=== PATIENT | female | born 1935 | race Caucasian/White ===

== ENCOUNTER 2017-12-04 09:37 | Emergency (ER) | payer OTHER ==
[2017-12-04 10:47] LABS: Absolute Monocytes 0.4 K/uL (0.1-1.3); Absolute Neutrophil 6.7 K/uL (1.8-8.0); Basophils % 0.4 % (0-1.3); Eosinophils % 0.2 % (0-4.4); Hematocrit 36.5 % (36.0-45.0); Lymphocytes % 12.5 % (15.3-44.8); MCH 28.9 pg (27.0-35.0); MCV 87.4 fL (80-100); MPV 9.7 fL (7.6-11.3); Monocytes % 5.1 % (3.3-12.3); RBC Red Blood Cell Count 4.18 M/uL (3.86-4.86)
--- NOTE | 2017-12-04 10:56 | RAD REPORT ---
EXAM DESCRIPTION: RAD - Chest Single View - 12/04/2017 10:48 am CLINICAL HISTORY: Fall, chest pain. COMPARISON: 01/25/2014 FINDINGS: Portable technique limits examination quality. The lungs are grossly clear. The heart is normal in size. No displaced fractures. IMPRESSION: No acute intrathoracic process suspected.
[2017-12-04 10:57] LABS: Potassium 3.7 mEq/L (3.6-5.0)
--- NOTE | 2017-12-04 11:12 | RAD REPORT ---
EXAM DESCRIPTION: CT - Head Brain Wo Cont - 12/04/2017 11:01 am CLINICAL HISTORY: Fall, syncope, head injury. COMPARISON: 01/25/2014 TECHNIQUE: All CT scans are performed using dose optimization technique as appropriate and may inclu de automated exposure control or mA/KV adjustment according to patient size. FINDINGS: 6 mm area of increased density is seen along the medial left frontal lobe medially adjacen t to the anterior falx, probably representing a small petechial hemorrhagic shear injury.No midline s hift is present. The paranasal sinuses and mastoids are clear. The calvarium is intact. IMPRESSION: 6 mm medial left frontal lobe petechial hemorrhagic shear injury suspected. No midline shift. Findings were discussed with Dr. Graham in the emergency room 12/04/2017 at 11:05 a.m. by telephone.
[2017-12-04 11:19] LABS: Urine Blood 1+ (NEG); Urine Glucose NEGATIVE (NEG); Urine Protein NEGATIVE (NEG)
--- NOTE | 2017-12-04 12:27 | ER ---
Nurse's Notes [facility] Name: Rosie Villalba Age: 82 yrs Sex: Female : 1935 Arrival Date: 12/04/2017 Time: 09:48 Bed 15 Private MD: Diagnosis: Contusion and laceration of left cerebrum Presentation: 12/04 09:34 Presenting complaint: EMS states: pt. is an 82 yr. old female that was getting out of rb1 bed around 2:00 this morning when she fell. The told EMS that his had LOC for a few seconds. Pt. is A \\T\\ O x 4, c/o pain to the right shoulder and neck. GCS 15 and has dizziness which is normal for her. Pt. was SR, BS 121, BP 150/80, T 98.7. Has a history of HTN, hypothyroidism, bilateral carotid blockage, glaucoma, hypoglycemia, and migraines. ROM is limited in the right shoulder. Pt. took tramadol this morning. Allergic to PCN and Sulfa. Had a doppler about 3 weeks ago that showed bilateral blockage. Transition of care: patient was not received from another setting of care. Onset of symptoms was December 04, 2017 at 02:00. Risk Assessment: Do you want to hurt yourself or someone else? Patient reports no desire to harm self or others. Initial Sepsis Screen: Does the patient meet any 2 criteria? No. Patient's initial sepsis screen is negative. Does the patient have a suspected source of infection? No. Patient's initial sepsis screen is negative. Care prior to arrival: Medication(s) given: Tramadol. 09:34 Method Of Arrival: EMS: [facility] rb1 09:34 Acuity: STERLING 3 rb1 Triage Assessment: 09:35 General: Appears in no apparent distress. comfortable, Behavior is calm, cooperative. rb1 Pain: Complains of pain in right shoulder and neck Pain currently is 7 out of 10 on a pain scale. Pain began 0200 this morning. Neuro: Level of Consciousness is awake, alert, obeys commands, Oriented to person, place, time, situation, Commodity Merchant are equal bilaterally Moves all extremities. Gait is steady, Speech is normal, Facial symmetry appears normal, Pupils are PERRLA. Cardiovascular: Capillary refill < 3 seconds is brisk in bilateral fingers. Respiratory: Airway is patent Respiratory effort is even, unlabored, Respiratory pattern is regular, symmetrical. GI: No signs and/or symptoms were reported involving the gastrointestinal system. : No signs and/or symptoms were reported regarding the genitourinary system. Derm: Wound noted skin tear to right hand Bruising that is dark purple, on right shoulder, right wrist, left upper arm. Musculoskeletal: Range of motion: limited in right shoulder. 09:35 EENT: Eyes bruising/swelling to the right eye. rb1 09:35 Neuro: Reports dizziness, pt. stated, "I struggle with being dizzy since the .". rb1 Historical: - Allergies: 09:35 PENICILLINS; rb1 09:35 Sulfa (Sulfonamide Antibiotics); rb1 09:35 Aspirin; rb1 - Home Meds: :35 Tramadol 37.5 mg Oral [Active]; Synthroid 175 mcg Oral tab 1 tab once daily [Active]; rb1 losartan 25 mg oral tab 1 tab once daily [Active]; latanoprost 0.1% ophthalmic drop 1 drop once daily [Active]; - PMHx: 09:35 Hypertension; Hypothyroidism; bilateral carotid blockage; Glaucoma; hypoglycemia; rb1 Migraines; - PSHx: 09:35 Appendectomy; Cholecystectomy; Hysterectomy; rb1 - Immunization history:: Adult Immunizations up to date. - Social history:: Smoking status: Patient/guardian denies using tobacco, never smoked. - Ebola Screening: : Patient negative for fever greater than or equal to 101.5 degrees Fahrenheit, and additional compatible Ebola Virus Disease symptoms Patient denies travel to an Ebola-affected area in the 21 days before illness onset. Screenin:35 Abuse screen: Denies threats or abuse. Nutritional screening: No deficits noted. rb1 Tuberculosis screening: No symptoms or risk factors identified. Fall Risk Fall in past 12 months (25 points). No secondary diagnosis (0 pts). IV access (20 points). Ambulatory Aid- None/Bed Rest/Nurse Assist (0 pts). Gait- Normal/Bed Rest/Wheelchair (0 pts) Mental Status- Oriented to own ability (0 pts). Total Sr Fall Scale indicates High Risk Score (45 or more points). Fall prevention measures have been instituted. Side Rails Up X 2 Placed Close to Nursing Station 1:1 Attendant Assigned Frequent Obs/Assessments Occuring Family Present and informed to notify staff if the need to leave the bedside As available patient and family educated on Fall Prevention Program and Strategies. Assessment: 09:35 General: see triage assessment. rb1 10:30 Reassessment: Patient appears in no apparent distress at this time. No changes from rb1 previously documented assessment. 10:53 Reassessment: pt. went to CT. rb1 11:30 Reassessment: Patient appears in no apparent distress at this time. Patient and/or rb1 family updated on plan of care and expected duration. Pain level reassessed. Patient is alert, oriented x 3, equal unlabored respirations, skin warm/dry/pink. at bedside. 12:30 Reassessment: Patient appears in no apparent distress at this time. No changes from rb1 previously documented assessment. Family at bedside. Pt. and family updated on POC. 12:40 Reassessment: Called report to RICO Guardado at [facility]. Information from the [facility] was rb1 given. All results for tests were given. All questions asked and answered. 13:11 Reassessment: Patient appears in no apparent distress at this time. Patient and/or rb1 family updated on plan of care and expected duration. Pain level reassessed. Patient is alert, oriented x 3, equal unlabored respirations, skin warm/dry/pink. Family at bedside. Vital Signs: 09:35 BP 158 / 73; Pulse 90; Resp 17; Temp 98.1(O); Pulse Ox 100% on R/A; Weight 80.29 kg rb1 (R); Height 5 ft. 8 in. (172.72 cm) (R); Pain 7/10; 10:30 BP 145 / 64; Pulse 75; Resp 19; Pulse Ox 99% on R/A; Pain 6/10; rb1 11:30 BP 149 / 56; Pulse 75; Resp 15; Pulse Ox 98% on R/A; rb1 12:30 BP 140 / 54; Pulse 70; Resp 13; Pulse Ox 98% ; rb1 13:11 BP 142 / 73; Pulse 74; Resp 19; Pulse Ox 99% on R/A; rb1 09:35 Body Mass Index 26.91 (80.29 kg, 172.72 cm) rb1 ED Course: 09:35 Arm band placed on right wrist. rb1 09:35 Patient has correct armband on for positive identification. Placed in gown. Bed in low rb1 position. Call light in reach. Side rails up X 1. it service continuity supervisor on. Pulse ox on. NIBP on. 09:35 Warm blanket given. rb1 09:48 Patient arrived in ED. 09:48 Tim Graham MD is Attending Physician. 09:52 Irina Solis, RN is Primary Nurse. rb1 09:58 Triage completed. rb1 10:20 Inserted saline lock: 22 gauge in right antecubital area, using aseptic technique. rb1 Blood collected. 10:[address] via stretcher. kw1 10:44 EKG done, by electronics technician apprentice. reviewed by Tim Graham MD. sm3 10:48 X-ray completed. Portable x-ray completed in exam room. Patient tolerated procedure jb2 well. 10:48 XRAY Chest (1 view) In Process Unspecified. EDMS 11:01 CT completed. Patient tolerated procedure well. Patient moved to CT via stretcher. kw1 Patient moved back from CT. 11:01 CT Head Brain wo Cont In Process Unspecified. EDMS 12:[address] via stretcher. vr 12:16 CT completed. Patient tolerated procedure well. Patient moved back from CT. vr 12:16 CT C Spine In Process Unspecified. EDMS 13:15 No provider procedures requiring assistance completed. Patient transferred, IV remains rb1 in place. Administered Medications: 12:54 Drug: [place] 5 mg-325 mg 1 tabs Route: PO; rb1 13:15 Follow up: Response: No adverse reaction; Pain is decreased rb1 Outcome: 12:26 ER care complete, transfer ordered by . 13:15 Patient left the ED. rb1 13:15 Transferred by ground EMS to [facility], Transfer form completed. rb1 13:15 Condition: stable 13:15 Instructed on the need for transfer. Signatures: Dispatcher [employer] EDMS Gallito London jb2 Kelly Rodriguez RN RN ss Davis, Victoria vr Irina Solis, RICO RN rb1 Tim Graham MD MD gs Wilhelm, Kimberly kw1 Velvet Leija sm3 Corrections: (The following items were deleted from the chart) 14:08 13:40 Patient left the ED. rb1 rb1
--- NOTE | 2017-12-04 12:27 | EDPHYS ---
Physician Documentation [facility] Name: Rosie Villalba Age: 82 yrs Sex: Female : 1935 Arrival Date: 12/04/2017 Time: 09:48 Bed 15 Private MD: ED Physician Tim Graham HPI: 12/04 12:18 This 82 yrs old Female presents to ER via EMS with complaints of Fall Injury. gs 12:18 Details of fall: The patient fell from an upright position. Onset: The symptoms/episode gs began/occurred acutely, this morning. Associated injuries: The patient sustained injury to the head, contusion, hematoma. Severity of symptoms: At their worst the symptoms were moderate, in the emergency department the symptoms are unchanged. The patient has experienced similar episodes in the past, a few times. pt was walking back from br pocket maker got dizzy not unusual for her fell no loc. Historical: - Allergies: 09:35 PENICILLINS; rb1 09:35 Sulfa (Sulfonamide Antibiotics); rb1 09:35 Aspirin; rb1 - Home Meds: 09:35 Tramadol 37.5 mg Oral [Active]; Synthroid 175 mcg Oral tab 1 tab once daily [Active]; rb1 losartan 25 mg oral tab 1 tab once daily [Active]; latanoprost 0.1% ophthalmic drop 1 drop once daily [Active]; - PMHx: 09:35 Hypertension; Hypothyroidism; bilateral carotid blockage; Glaucoma; hypoglycemia; rb1 Migraines; - PSHx: 09:35 Appendectomy; Cholecystectomy; Hysterectomy; rb1 - Immunization history:: Adult Immunizations up to date. - Social history:: Smoking status: Patient/guardian denies using tobacco, never smoked. - Ebola Screening: : Patient negative for fever greater than or equal to 101.5 degrees Fahrenheit, and additional compatible Ebola Virus Disease symptoms Patient denies travel to an Ebola-affected area in the 21 days before illness onset. ROS: 12:18 All other systems are negative. gs Exam: 12:18 Eyes: Pupils equal round and reactive to light, extra-ocular motions intact. Lids and gs lashes normal. Conjunctiva and sclera are non-icteric and not injected. Cornea within normal limits. Periorbital areas with no swelling, redness, or edema. ENT: Nares patent. No nasal discharge, no septal abnormalities noted. Tympanic membranes are normal and external auditory canals are clear. Oropharynx with no redness, swelling, or masses, exudates, or evidence of obstruction, uvula midline. Mucous membranes moist. Neck: Trachea midline, no thyromegaly or masses palpated, and no cervical lymphadenopathy. Supple, full range of motion without nuchal rigidity, or vertebral point tenderness. No Meningismus. Chest/axilla: Normal chest wall appearance and motion. Nontender with no deformity. No lesions are appreciated. Cardiovascular: Regular rate and rhythm with a normal S1 and S2. No gallops, murmurs, or rubs. Normal PMI, no JVD. No pulse deficits. Respiratory: Lungs have equal breath sounds bilaterally, clear to auscultation and percussion. No rales, rhonchi or wheezes noted. No increased work of breathing, no retractions or nasal flaring. Abdomen/GI: Soft, non-tender, with normal bowel sounds. No distension or tympany. No guarding or rebound. No evidence of tenderness throughout. Back: No spinal tenderness. No costovertebral tenderness. Full range of motion. Skin: Warm, dry with normal turgor. Normal color with no rashes, no lesions, and no evidence of cellulitis. MS/ Extremity: Pulses equal, no cyanosis. Neurovascular intact. Full, normal range of motion. Neuro: Awake and alert, GCS 15, oriented to person, place, time, and situation. Cranial nerves II-XII grossly intact. Motor strength 5/5 in all extremities. Sensory grossly intact. Cerebellar exam normal. Normal gait. 12:18 Constitutional: The patient appears alert, awake. 12:18 Head/face: Noted is ecchymosis, that is moderate, of the right eye. 12:18 Eyes: Pupils: no acute changes, equal, round, and reactive to light and accomodation, Extraocular movements: intact throughout. 12:18 ECG was reviewed by the Attending Physician. Vital Signs: 09:35 BP 158 / 73; Pulse 90; Resp 17; Temp 98.1(O); Pulse Ox 100% on R/A; Weight 80.29 kg rb1 (R); Height 5 ft. 8 in. (172.72 cm) (R); Pain 7/10; 10:30 BP 145 / 64; Pulse 75; Resp 19; Pulse Ox 99% on R/A; Pain 6/10; rb1 11:30 BP 149 / 56; Pulse 75; Resp 15; Pulse Ox 98% on R/A; rb1 12:30 BP 140 / 54; Pulse 70; Resp 13; Pulse Ox 98% ; rb1 13:11 BP 142 / 73; Pulse 74; Resp 19; Pulse Ox 99% on R/A; rb1 09:35 Body Mass Index 26.91 (80.29 kg, 172.72 cm) rb1 MDM: 10:20 Patient medically screened. gs 12:18 Differential diagnosis: abrasion, closed head injury, contusion, fracture. Data gs reviewed: vital signs, nurses notes. Response to treatment: the patient's symptoms have mildly improved after treatment. 12/04 10:31 Order name: Basic Metabolic Panel; Complete Time: 11:05 gs 12/04 10:31 Order name: CBC with Diff; Complete Time: 11:05 gs 12/04 10:31 Order name: XRAY Chest (1 view); Complete Time: 11:05 12/04 10:31 Order name: CT Head Brain wo Cont; Complete Time: 11:26 gs 12/04 11:02 Order name: Urine Dipstick--Ancillary (enter results); Complete Time: 11:26 ag 12/04 12:04 Order name: CT C Spine; Complete Time: 12:47 gs 12/04 10:31 Order name: EKG; Complete Time: 10:31 gs 12/04 10:31 Order name: Cardiac monitoring; Complete Time: 10:52 12/04 10:31 Order name: EKG - Nurse/Tech; Complete Time: 10:52 12/04 10:31 Order name: IV Saline Lock; Complete Time: 10:52 12/04 10:31 Order name: Labs collected and sent; Complete Time: 10:53 12/04 10:31 Order name: O2 Per Protocol; Complete Time: 10:53 12/04 10:31 Order name: O2 Sat Monitoring; Complete Time: 10:53 12/04 10:31 Order name: Urine Dipstick-Ancillary (obtain specimen); Complete Time: 12:29 gs EC:18 Rate is 77 beats/min. Rhythm is regular. [place] interval is normal. QRS interval is normal. gs T waves are Normal. No ST changes noted. Clinical impression: NSR w/ Non-specific ST/T Changes. Interpreted by me. Administered Medications: 12:54 Drug: [place] 5 mg-325 mg 1 tabs Route: PO; rb1 13:15 Follow up: Response: No adverse reaction; Pain is decreased rb1 Disposition: 12/04/17 12:26 Transfer ordered to [facility]. Diagnosis is Contusion and laceration of left cerebrum. - Reason for transfer: Higher level of care. - Accepting physician is tbd. - Condition is Stable. - Problem is new. - Symptoms have improved. Critical care time excluding procedures: 12:18 Critical care time: Bedside Care: 10 minutes, Consultation: 10 minutes, Family gs Intervention: 10 minutes. Total time: 30 minutes Signatures: Dispatcher [employer] EDIrina Lee RN RN rb1 Tim Graham MD MD gs Corrections: (The following items were deleted from the chart) 13:40 12:26 12/04/2017 12:26 Transfer ordered to [facility]. Diagnosis is rb1 Contusion and laceration of left cerebrum. Reason for transfer: Higher level of care. Accepting physician is tbd. Condition is Stable. Problem is new. Symptoms have improved. gs
--- NOTE | 2017-12-04 12:38 | RAD REPORT ---
EXAM DESCRIPTION: CT - C Spine Wo Con - 12/04/2017 12:17 pm CLINICAL HISTORY: Fall, neck injury. COMPARISON: None. TECHNIQUE: Axial 2 mm thick images of the cervical spine were obtained with sagittal and coronal rec onstruction images generated and reviewed. All CT scans are performed using dose optimization technique as appropriate and may include automated exposure control or mA/KV adjustment according to patient size. FINDINGS: Cervical body height and alignment are normal. Mild lower cervical spondylosis. No fractur e or acute bony abnormality. No paraspinal mass or hematoma. The odontoid is normal and the lateral masses are symmetric. Right-sided facial swelling noted. IMPRESSION: No acute cervical spine fracture/dislocation. Right-sided facial swelling.
[2017-12-04] MEDS ORDERED: HYDROCODONE/APAP 5/325 MG TAB ONE (12:53)
[2017-12-04 13:45] VITALS: O2SAT 98
[2017-12-04 13:46] VITALS: BP 140/54
--- NOTE | 2017-12-05 07:23 | EKG ---
Test Date: 2017-12-04 Test Time: 10:38:43 Dairy Equipment Installer: JOHN MEASUREMENT RESULTS: Intervals: Rate: 77 CT: 166 QRSD: 98 QT: 416 QTc: 470 [place]: P: 53 CT: 166 QRS: 1 T: 17 INTERPRETIVE STATEMENTS: Normal sinus rhythm Normal ECG Compared to ECG 01/25/2014 15:17:40 No significant changes Electronically Signed On 12-05-17 07:19:57 CDT by Bo Talamantes
== END 2017-12-04 13:40 | disposition short-term general hospital (02) ==
LOC: ER 09:37
DX: S06.320A Contusion and laceration of left cerebrum without loss of consciousness, initial encounter (principal); W06.XXXA Fall from bed, initial encounter; Y93.89 Activity, other specified; Y92.003 Bedroom of unspecified non-institutional (private) residence as the place of occurrence of the external cause; I10 Essential (primary) hypertension; E03.9 Hypothyroidism, unspecified; Z88.0 Allergy status to penicillin; Z88.2 Allergy status to sulfonamides; Z88.6 Allergy status to analgesic agent
CPT/HCPCS: 36415; 70450; 71045; 72125; 80048; 81003; 85025; 93005; 99285

== ENCOUNTER 2019-08-07 19:33 | Observation (INO) | payer OTHER ==
--- OUTSIDE RECORDS SUMMARY | 2019-08-07 19:36 | XMS REPORT ---
:1935 [facility] Address [address] [place] [address] Care Team Providers Name Role Phone DEVYN WALDEN Unavailable Unavailable Problems This patient has no known problems. Allergies, Adverse Reactions, Alerts This patient has no known allergies or adverse reactions. Medications This patient has no known medications. Results Test Description Test Time Test Comments Text Results Atomic Results Result Comments POCT-GLUCOSE METER 2017-12-06 12:14:00 Test Item Value Reference Range Comments POC-GLUCOSE METER (BEAKER) (test 123 mg/dL 70-110 TESTED AT [address] dhqs=0569) [facility] [address] HEMOGLOBIN [id number] 08:41:00 Test Item Value Reference Range Comments HEMOGLOBIN A1C (BEAKER) (test bpbu=915) 5.1 % 4.3-6.1 TSH/FREE T4 IF [id number] 07:09:00 Test Item Value Reference Range Comments THYROID STIMULATING HORMONE (BEAKER) (test 0.00 uIU/mL 0.35-4.94 nkfj=760) POCT-GLUCOSE [id number] 07:07:00 Test Item Value Reference Range Comments POC-GLUCOSE METER (BEAKER) 104 mg/dL 70-110 TESTED AT [address] (test uvqs=1734) [facility] [address] T4, [id number] 07:07:00 Test Item Value Reference Range Comments FREE T4 (BEAKER) (test pqzu=554) 1.48 ng/dL 0.70-1.48 BASIC METABOLIC [id number] 05:13:00 Test Item Value Reference Range Comments SODIUM (BEAKER) (test 139 meq/L 136-145 ahiw=632) POTASSIUM (BEAKER) (test 3.9 meq/L 3.5-5.1 ytau=680) CHLORIDE (BEAKER) (test 105 meq/L 98-107 efxm=442) CO2 (BEAKER) (test 25 meq/L 22-29 yzfg=113) BLOOD UREA NITROGEN 15 mg/dL 7-21 (BEAKER) (test hwnu=929) CREATININE (BEAKER) (test 0.84 mg/dL 0.57-1.25 zbkn=839) GLUCOSE RANDOM (BEAKER) 103 mg/dL 70-105 (test juit=595) CALCIUM (BEAKER) (test 9.6 mg/dL 8.4-10.2 evzf=877) EGFR (BEAKER) (test 65 mL/min/1.73 sq m ESTIMATED GFR IS NOT njqc=1136) ACCURATE CREATININE CLEARANCE IN PREDICTING GLOMERULAR FILTRATION RATE. ESTIMATED GFR IS NOT APPLICABLE FOR DIALYSIS PATIENTS. CBC W/PLT COUNT & AUTO [id number] 04:34:00 Test Item Value Reference Range Comments WHITE BLOOD CELL COUNT (BEAKER) (test gxmj=660) 6.7 K/ L 3.5-10.5 RED BLOOD CELL COUNT (BEAKER) (test hhcm=432) 4.06 M/ L 3.93-5.22 HEMOGLOBIN (BEAKER) (test gwzi=223) 11.9 GM/DL 11.2-15.7 HEMATOCRIT (BEAKER) (test gbdr=927) 36.5 % 34.1-44.9 MEAN CORPUSCULAR VOLUME (BEAKER) (test gvbw=523) 89.9 fL 79.4-94.8 MEAN CORPUSCULAR HEMOGLOBIN (BEAKER) (test 29.3 pg 25.6-32.2 qwhg=950) MEAN CORPUSCULAR HEMOGLOBIN CONC (BEAKER) (test 32.6 GM/DL 32.2-35.5 yukf=997) RED CELL DISTRIBUTION WIDTH (BEAKER) (test 12.8 % 11.7-14.4 gdzc=803) PLATELET COUNT (BEAKER) (test hqig=035) 211 K/CU MM 150-450 MEAN PLATELET VOLUME (BEAKER) (test kqvv=565) 10.8 fL 9.4-12.3 NUCLEATED RED BLOOD CELLS (BEAKER) (test 0 /100 WBC 0-0 milv=472) NEUTROPHILS RELATIVE PERCENT (BEAKER) (test 67 % ssci=537) LYMPHOCYTES RELATIVE PERCENT (BEAKER) (test 19 % xytr=890) MONOCYTES RELATIVE PERCENT (BEAKER) (test 9 % hxkc=618) EOSINOPHILS RELATIVE PERCENT (BEAKER) (test 4 % agdd=981) BASOPHILS RELATIVE PERCENT (BEAKER) (test 0 % xkcx=707) NEUTROPHILS ABSOLUTE COUNT (BEAKER) (test 4.45 K/ L 1.56-6.13 bvfx=373) LYMPHOCYTES ABSOLUTE COUNT (BEAKER) (test 1.28 K/ L 1.18-3.74 wswt=210) MONOCYTES ABSOLUTE COUNT (BEAKER) (test 0.61 K/ L 0.24-0.36 cobq=939) EOSINOPHILS ABSOLUTE COUNT (BEAKER) (test 0.29 K/ L 0.04-0.36 squa=514) BASOPHILS ABSOLUTE COUNT (BEAKER) (test 0.03 K/ L 0.01-0.08 mtnf=682) IMMATURE GRANULOCYTES-RELATIVE PERCENT (BEAKER) 0 % 0-1 (test nubj=6867) POCT-GLUCOSE [id number] 00:40:00 Test Item Value Reference Range Comments POC-GLUCOSE METER (BEAKER) 104 mg/dL 70-110 TESTED AT [address] (test xhcm=4888) [place] [address] POCT-GLUCOSE [id number] 19:30:00 Test Item Value Reference Range Comments POC-GLUCOSE METER (BEAKER) 95 mg/dL 70-110 TESTED AT [address] (test fkwq=2298) [place] [address] POCT-GLUCOSE [id number] 13:23:00 Test Item Value Reference Range Comments POC-GLUCOSE METER (BEAKER) 106 mg/dL 70-110 TESTED AT [address] (test veqv=3042) [place] [id number] [place], CTANGIO [id number] 12:44:00FINAL REPORT CT angiogram of the upper chest, neck, and head Comparison: None Reason for exam: Intracranial hemorrhage Discussion: Multiple axial CT images of the upper chest , neck, and head were obtained using CT angiography technique. 2-D and 3-D reconstructed images were provided. 3D MIP images were generated. NASCET criteria are utilized when considering stenosis. Please note that CTA is inherently insensitive in evaluating the cavernous and skullbase portions of the internal carotid arteries because of adjacent bone and venous opacification. Dose modulation, iterative reconstruction, and/or weight based adjustment of the mA/kV was utilized to reduce the radiation dose to as low as reasonably achievable. Unenhanced head CT shows subtle hyperdensity in the inferior frontal interhemispheric fissure on the left, likely reflecting intracranial hemorrhage and question. This is unchanged from outside head CT imaging December 04. No hydrocephalus. No evidence of new hemorrhage. Normal flow upper chest aortic branches. Normal flow cervical carotid systems and cervical segment vertebral arteries with no stenosis by NASCET criteria. Normal flow intracranial internal carotid arteries and in the carotid terminus branches proximally. Normal vertebrobasilar and proximal posterior cerebral artery flow. Normal flow intracranial venous drainage pathways. No specific evidence of intracranial aneurysm or vascular malformation. Source images show right-sided lateral face and lower facial soft tissue swelling which is presumably trauma related. Impressions: Negative CTA upper chest, neck, head. Signed: Julio Cesar Stubbs Verified Date/Time: 12/05/2017 12:44:41 Reading Location: [address] Neuro Reading Room CT, CAROTID, [id number] 12:44:00FINAL REPORT CT angiogram of the upper chest, neck, and head Comparison: None Reason for exam: Intracranial hemorrhage Discussion: Multiple axial CT images of the upper chest, neck, and head were obtained using CT angiography technique. 2-D and 3-D reconstructed images were provided. 3D MIP images were generated. NASCET criteria are utilized when considering stenosis. Please note that CTA is inherently insensitive in evaluating the cavernous and skullbase portions of the internal carotid arteries because of adjacent bone and venous opacification. Dose modulation, iterative reconstruction, and/or weight based adjustment of the mA/kV was utilized to reduce the radiation dose to as low as reasonably achievable. Unenhanced head CT shows subtle hyperdensity in the inferior frontal interhemispheric fissure on the left, likely reflecting intracranial hemorrhage and question. This is unchanged from outside head CT imaging December 04. No hydrocephalus. No evidence of new hemorrhage. Normal flow upper chest aortic branches. Normal flow cervical carotid systems and cervical segment vertebral arteries with no stenosis by NASCET criteria. Normal flow intracranial internal carotid arteries and in the carotid terminus branches proximally. Normal vertebrobasilar and proximal posterior cerebral artery flow. Normal flow intracranial venous drainage pathways. No specific evidence of intracranial aneurysm or vascular malformation. Source images show right-sided lateral face and lower facial soft tissue swelling which is presumably trauma related. Impressions: Negative CTA upper chest, neck, head. Signed: Julio Cesar Stubbs Verified Date/Time: 01/2018 12:44:41 Reading Location: [address] Neuro Reading Room TROPONIN [id number] 08:33:00 Test Item Value Reference Range Comments TROPONIN I (BEAKER) (test vicf=456) 0.04 ng/mL 0.00-0.03 Troponin I (TnI) levels must be interpreted in the context of the presenting symptoms and the clinical findings. Elevated TnI levels indicate myocardial damage, but are not specific for ischemic heart disease. Elevated TnI levels are seen in patients with other cardiac conditions (including myocarditis and congestive heart failure), and slight TnI elevations occur in patients with other conditions, including sepsis, renal failure, acidosis, acute neurological disease, and persistent tachyarrhythmia.Once on admission and Daily AM afterwardsOnce on admission and Daily AM afterwardsOnce on admission and Daily AM afterwardsPOCT-GLUCOSE [id number] 06:33:00 Test Item Value Reference Range Comments POC-GLUCOSE METER (BEAKER) 108 mg/dL 70-[address] [facility] [address] [facility] (test fbxy=1909) [facility] [address] [id number] 05:19:00 Test Item Value Reference Range Comments PHOSPHORUS (BEAKER) (test lqex=783) 3.5 mg/dL 2.3-4.7 Once on admission and Daily AM afterwardsOnce on admission and Daily AM afterwardsOnce on admission and Daily AM [id number] 05:19:00 Test Item Value Reference Range Comments MAGNESIUM (BEAKER) (test qnft=984) 2.0 mg/dL 1.6-2.6 Once on admission and Daily AM afterwardsOnce on admission and Daily AM afterwardsOnce on admission and Daily AM afterwardsBASIC METABOLIC [id number] 05:19:00 Test Item Value Reference Range Comments SODIUM (BEAKER) (test 138 meq/L 136-145 hsmv=399) POTASSIUM (BEAKER) (test 4.0 meq/L 3.5-5.1 djza=516) CHLORIDE (BEAKER) (test 106 meq/L 98-107 yugt=457) CO2 (BEAKER) (test 24 meq/L 22-29 hayf=362) BLOOD UREA NITROGEN 12 mg/dL 7-21 (BEAKER) (test kkes=481) CREATININE (BEAKER) (test 0.76 mg/dL 0.57-1.25 ygxw=202) GLUCOSE RANDOM (BEAKER) 96 mg/dL 70-105 (test szve=553) CALCIUM (BEAKER) (test 9.5 mg/dL 8.4-10.2 tuwb=595) EGFR (BEAKER) (test 73 mL/min/1.73 sq m ESTIMATED GFR IS NOT aylp=2137) ACCURATE CREATININE CLEARANCE IN PREDICTING GLOMERULAR FILTRATION RATE. ESTIMATED GFR IS NOT APPLICABLE FOR DIALYSIS PATIENTS. Once on admission and Daily AM afterwardsOnce on admission and Daily AM afterwardsOnce on admission and Daily AM afterwardsCBC (HEMOGRAM ONLY) 04:53:00 Test Item Value Reference Range Comments WHITE BLOOD CELL COUNT (BEAKER) (test papx=488) 5.5 K/ L 3.5-10.5 RED BLOOD CELL COUNT (BEAKER) (test bhen=625) 3.96 M/ L 3.93-5.22 HEMOGLOBIN (BEAKER) (test sfod=731) 11.4 GM/DL 11.2-15.7 HEMATOCRIT (BEAKER) (test rrse=924) 35.4 % 34.1-44.9 MEAN CORPUSCULAR VOLUME (BEAKER) (test evme=139) 89.4 fL 79.4-94.8 MEAN CORPUSCULAR HEMOGLOBIN (BEAKER) (test 28.8 pg 25.6-32.2 hzfb=631) MEAN CORPUSCULAR HEMOGLOBIN CONC (BEAKER) (test 32.2 GM/DL 32.2-35.5 lkll=227) RED CELL DISTRIBUTION WIDTH (BEAKER) (test 12.9 % 11.7-14.4 ndup=678) PLATELET COUNT (BEAKER) (test wnmf=050) 214 K/CU MM 150-450 MEAN PLATELET VOLUME (BEAKER) (test nvux=830) 10.9 fL 9.4-12.3 NUCLEATED RED BLOOD CELLS (BEAKER) (test 0 /100 WBC 0-0 xbbn=146) POCT-GLUCOSE [id number] 00:23:00 Test Item Value Reference Range Comments POC-GLUCOSE METER (BEAKER) 108 mg/dL 70-[address] [facility] [address] [place] [address] (test fyik=7548) [facility] [address] POCT-GLUCOSE [id number] 18:20:00 Test Item Value Reference Range Comments POC-GLUCOSE METER (BEAKER) 75 mg/dL 70-110 TESTED AT [address] (test sbse=5691) [facility] [address] PROTHROMBIN TIME/[id number] 17:13:00 Test Item Value Reference Range Comments PROTIME (BEAKER) (test rycf=201) 13.9 seconds 11.7-14.7 INR (BEAKER) (test oubf=356) 1.1 <=5.9 RECOMMENDED COUMADIN/WARFARIN INR THERAPY RANGESSTANDARD DOSE: 2.0 - 3.0 Includes: PROPHYLAXIS forvenous thrombosis, systemic embolization; TREATMENT for venous thrombosis and/or pulmonary embolus.HIGH RISK: Target INR is 2.5-3.5 for patients with mechanical heart valves.[id number] 17:13:00 Test Item Value Reference Range Comments PARTIAL THROMBOPLASTIN TIME (BEAKER) (test 26.8 seconds 22.5-36.0 yalf=907) HEPATIC FUNCTION [id number] 17:10:00 Test Item Value Reference Range Comments TOTAL PROTEIN (BEAKER) (test brdj=307) 6.4 gm/dL 6.0-8.3 ALBUMIN (BEAKER) (test lvbm=1333) 3.6 g/dL 3.5-5.0 BILIRUBIN TOTAL (BEAKER) (test hvcs=841) 0.6 mg/dL 0.2-1.2 BILIRUBIN DIRECT (BEAKER) (test vnpn=505) 0.3 mg/dL 0.1-0.5 ALKALINE PHOSPHATASE (BEAKER) (test njig=570) 69 U/L 40-150 AST (SGOT) (BEAKER) (test uloj=071) 19 U/L 5-34 ALT (SGPT) (BEAKER) (test wsqe=811) 12 U/L 6-55
--- NOTE | 2019-08-07 20:19 | RAD REPORT ---
EXAM DESCRIPTION: CT - Head Brain Wo Cont - 08/07/2019 7:59 pm CLINICAL HISTORY: Syncope COMPARISON: 2018 TECHNIQUE: Computed axial tomography of the head was obtained. IV contrast was not requested. All CT scans are performed using dose optimization technique as appropriate and may include automated exposure control or mA/KV adjustment according to patient size. FINDINGS: An intracranial bleed is not seen . The ventricles are normal in caliber. No extra-axial fluid collection is noted. Fluid within the sinuses/ mastoids is not seen. IMPRESSION: No acute intracranial abnormality is seen. If patient's symptoms persist MRI of the bra in would be recommended.
[2019-08-07 20:40] LABS: Basophils % 0.4 % (0-1.3); Hematocrit 35.9 % (36.0-45.0); Lymphocytes % 16.5 % (15.3-44.8); MPV 9.3 fL (7.6-11.3); RBC Red Blood Cell Count 4.02 M/uL (3.86-4.86)
[2019-08-07 20:45] LABS: Protime INR 0.98
[2019-08-07 20:56] LABS: ALT/SGPT 18 U/L (12-78); AST/SGOT 21 U/L (15-37); Albumin 3.2 g/dL (3.4-5.0); Alkaline Phosphatase 80 U/L (45-117); BUN Blood Urea Nitrogen 19 mg/dL (7-18); Bicarbonate 27 mmol/L (21-32); Bilirubin Direct 0.1 mg/dL (0-0.2); Bilirubin Total 0.5 mg/dL (0.2-1.0); CKMB Creatine Kinase MB < 1.0 ng/mL (0.3-3.6); Creatine Phosphokinase 70 U/L (26-192); Glucose Level 102 mg/dL (74-106); Lipase 85 U/L (73-393); Magnesium 1.9 mg/dL (1.8-2.4); Potassium 4.2 mmol/L (3.5-5.1); Protein, Total 7.3 g/dL (6.4-8.2); Sodium Level 138 mmol/L (136-145); Troponin (Emerg Dept Use Only) < 0.02 ng/mL (0.0-0.045)
--- NOTE | 2019-08-07 22:04 | ER ---
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 not taking anticoagulant. 19:40 Transition of care: patient was not received from another setting of care. Onset of rr5 symptoms was August 07, 2019. Risk Assessment: Do you want to hurt yourself or someone else? Patient reports no desire to harm self or others. Initial Sepsis Screen: Does the patient meet any 2 criteria? No. Patient's initial sepsis screen is negative. Does the patient have a suspected source of infection? No. Patient's initial sepsis screen is negative. Care prior to arrival: Medication(s) given: Normal saline infusion, 500 mL, zofran 4 mg. 19:40 Method Of Arrival: EMS: Reading EMS rr5 19:40 Acuity: STERLING 3 rr5 Historical: - Allergies: 19:53 Aspirin; rr5 19:53 PENICILLINS; rr5 19:53 Sulfa (Sulfonamide Antibiotics); rr5 - Home Meds: 19:53 latanoprost 0.1% ophthalmic drop 1 drop once daily [Active]; losartan 25 mg Oral tab 1 rr5 tab once daily [Active]; Synthroid 175 mcg Oral tab 1 tab once daily [Active]; Tramadol 37.5 mg Oral [Active]; - PMHx: 19:53 bilateral carotid blockage; Glaucoma; Hypertension; HYPOGLYCEMIA; Hypothyroidism; rr5 Migraines; - PSHx: 19:53 Hysterectomy; breast lump surgery; Cholecystectomy; rr5 - Immunization history:: Adult Immunizations up to date. - Coronavirus screen:: The patient has NOT traveled to [place], [place], or [place] in the past 14 days. - Social history:: Smoking status: unknown Patient/guardian denies using alcohol, street drugs. - Ebola Screening: : Patient negative for fever greater than or equal to 101.5 degrees Fahrenheit, and additional compatible Ebola Virus Disease symptoms Patient denies exposure to infectious person Patient denies travel to an Ebola-affected area in the 21 days before illness onset. Screenin:54 Abuse screen: Denies threats or abuse. Denies injuries from another. Nutritional rr5 screening: No deficits noted. Tuberculosis screening: No symptoms or risk factors identified. Fall Risk Fall in past 12 months (25 points). IV access (20 points). Total Sr Fall Scale indicates High Risk Score (45 or more points). Fall prevention measures have been instituted. Side Rails Up X 2 Placed Close to Nursing Station Frequent Obs/Assessments Occuring Family Present and informed to notify staff if the need to leave the bedside As available patient and family educated on Fall Prevention Program and Strategies. 19:54 VAN Screening: Arm Drift: Patient shows no arm weakness. Patient is VAN negative. rr5 Assessment: 19:55 General: Appears in no apparent distress. comfortable, Behavior is calm, cooperative, rr5 appropriate for age. Pain: Denies pain. Neuro: Level of Consciousness is awake, alert, obeys commands, Oriented to person, place, time, situation, Appropriate for age Emergency Medical Technician are equal bilaterally Moves all extremities. Full function Speech is normal, Facial symmetry appears normal, Pupils are PERRLA. Cardiovascular: Capillary refill < 3 seconds Patient's skin is warm and dry. Rhythm is regular. Respiratory: Airway is patent Respiratory effort is even, unlabored, Respiratory pattern is regular, symmetrical. GI: Reports nausea. : No signs and/or symptoms were reported regarding the genitourinary system. EENT: No signs and/or symptoms were reported regarding the EENT system. Derm: Skin is intact, is healthy with good turgor, Skin temperature is warm. Musculoskeletal: Circulation, motion, and sensation intact. Capillary refill < 3 seconds. 21:00 Reassessment: Patient appears in no apparent distress at this time. No changes from rr5 previously documented assessment. Patient and/or family updated on plan of care and expected duration. Pain level reassessed. Patient is alert, oriented x 3, equal unlabored respirations, skin warm/dry/pink. no complaints made, chatting with her clother in at bedside. 21:15 Reassessment: awaiting for review, ED provider aware Patient denies pain at this time. rr5 22:20 Reassessment: Patient appears in no apparent distress at this time. Patient is alert, rr5 oriented x 3, equal unlabored respirations, skin warm/dry/pink. ED provider spoke to patient and family member agreed for the admission. hospitalist at bedside assessing the patient. 23:00 Reassessment: Patient appears in no apparent distress at this time. Patient is alert, rr5 oriented x 3, equal unlabored respirations, skin warm/dry/pink. awaiting for room assignment. 23:40 Reassessment: Patient appears in no apparent distress at this time. Patient is alert, rr5 oriented x 3, equal unlabored respirations, skin warm/dry/pink. for transfer to room 415. awake , conscious and coherent, not in distress. Patient denies pain at this time. Patient states feeling better. Vital Signs: 19:47 BP 155 / 70; Pulse 81; Resp 17; Temp 97.6; Pulse Ox 99% ; Weight 73.94 kg; Height 5 ft. rr5 8 in. (172.72 cm); Pain 0/10; 20:18 BP 138 / 52; Pulse 80; Resp 18; Pulse Ox 98% ; rr5 21:19 BP 122 / 64; Pulse 77; Resp 17; Pulse Ox 98% on R/A; ea 23:17 BP 140 / 55; Pulse 73; Resp 16; Pulse Ox 95% ; ea 23:37 BP 121 / 55; Pulse 77; Resp 17; Temp 97.8; Pulse Ox 96% ; rr5 19:47 Body Mass Index 24.78 (73.94 kg, 172.72 cm) rr5 [place] Coma Score: 19:47 Eye Response: spontaneous(4). Verbal Response: oriented(5). Motor Response: obeys rr5 commands(6). Total: 15. ED Course: 19:34 Patient arrived in ED. cf2 19:43 Lobo Shannon, [place] is Primary Nurse. rr5 19:45 Brain Bautista MD is Attending Physician. tw4 19:47 Triage completed. rr5 19:53 Arm band placed on right wrist. rr5 19:53 Patient has correct armband on for positive identification. Placed in gown. Bed in low rr5 position. Call light in reach. Side rails up X2. phototypesetting equipment monitor on. Pulse ox on. NIBP on. Warm blanket given. 19:54 Maintain EMS IV. Dressing intact. Good blood return noted. Site clean \T\ dry. Gauge \T\ rr 5 site: G22 right AC. 19:57 CT completed. Patient tolerated procedure well. Patient moved back from CT. bq 19:58 CT Head Brain wo Cont In Process Unspecified. EDMS 20:15 Initial lab(s) drawn, by me, sent to lab. rr5 21:58 Jose Odell is Hospitalizing Provider. tw4 23:18 No provider procedures requiring assistance completed. Patient admitted, IV remains in ea place. Administered Medications: No medications were administered Point of Care Testing: Blood Glucose: 19:47 Blood Glucose: 83 mg/dL; rr5 Ranges: Outcome: 22:00 Decision to Hospitalize by Provider. tw4 23:18 Instructed on the need for admit, Demonstrated understanding of instructions. ea 23:36 Admitted to Tele accompanied by tech, via stretcher, room 415, with chart, Report rr5 called to britta 23:36 Condition: stable 23:48 Patient left the ED. rr5 Signatures: Dispatcher [employer] EDMS Ashlee Tuttle Elena, RN RN Brain Tolentino MD MD tw4 Lobo Shannon RN RN rr5 Steven Brown cf2
--- NOTE | 2019-08-07 22:05 | EDPHYS ---
Physician Documentation [facility] Name: Rosie Villalba Age: 83 yrs Sex: Female : 1935 Arrival Date: 08/07/2019 Time: 19:34 Bed 2 Private MD: ED Physician Brain Bautista HPI: 08/08 06:19 This 83 yrs old Female presents to ER via EMS with complaints of Syncope. tw4 06:19 The patient has experienced syncope, collapsed, lost consciousness. Onset: The tw4 symptoms/episode began/occurred today. Duration: This was a single episode. Context: the episode(s) was witnessed, by a bystander, occurred at a store, occurred while the patient was standing. Associated injury: Head/face: contusion. Associated signs and symptoms: The patient has no apparent associated signs or symptoms. The patient has experienced similar episodes in the past, a few times. Historical: - Allergies: 08/07 19:53 Aspirin; rr5 19:53 PENICILLINS; rr5 19:53 Sulfa (Sulfonamide Antibiotics); rr5 - Home Meds: 19:53 latanoprost 0.1% ophthalmic drop 1 drop once daily [Active]; losartan 25 mg Oral tab 1 rr5 tab once daily [Active]; Synthroid 175 mcg Oral tab 1 tab once daily [Active]; Tramadol 37.5 mg Oral [Active]; - PMHx: 19:53 bilateral carotid blockage; Glaucoma; Hypertension; HYPOGLYCEMIA; Hypothyroidism; rr5 Migraines; - PSHx: 19:53 Hysterectomy; breast lump surgery; Cholecystectomy; rr5 - Immunization history:: Adult Immunizations up to date. - Coronavirus screen:: The patient has NOT traveled to [place], [place], or [place] in the past 14 days. - Social history:: Smoking status: unknown Patient/guardian denies using alcohol, street drugs. - Ebola Screening: : Patient negative for fever greater than or equal to 101.5 degrees Fahrenheit, and additional compatible Ebola Virus Disease symptoms Patient denies exposure to infectious person Patient denies travel to an Ebola-affected area in the 21 days before illness onset. ROS: 08/08 06:19 Constitutional: Negative for fever, chills, and weight loss, Eyes: Negative for injury, tw4 pain, redness, and discharge, Cardiovascular: Negative for chest pain, palpitations, and edema, Respiratory: Negative for shortness of breath, cough, wheezing, and pleuritic chest pain, Abdomen/GI: Negative for abdominal pain, nausea, vomiting, diarrhea, and constipation, Back: Negative for injury and pain, MS/Extremity: Negative for injury and deformity, Skin: Negative for injury, rash, and discoloration. Neuro: Positive for syncope, Negative for altered mental status, dizziness, gait disturbance, headache, hearing loss, numbness, seizure activity, speech changes, tingling, tremor. Exam: 06:18 Constitutional: This is a well developed, well nourished patient who is awake, alert, tw4 and in no acute distress. Head/Face: Normocephalic, atraumatic. Chest/axilla: Normal chest wall appearance and motion. Nontender with no deformity. No lesions are appreciated. Cardiovascular: Regular rate and rhythm with a normal S1 and S2. No gallops, murmurs, or rubs. Normal PMI, no JVD. No pulse deficits. Respiratory: Lungs have equal breath sounds bilaterally, clear to auscultation and percussion. No rales, rhonchi or wheezes noted. No increased work of breathing, no retractions or nasal flaring. Abdomen/GI: Soft, non-tender, with normal bowel sounds. No distension or tympany. No guarding or rebound. No evidence of tenderness throughout. Back: No spinal tenderness. No costovertebral tenderness. Full range of motion. MS/ Extremity: Pulses equal, no cyanosis. Neurovascular intact. Full, normal range of motion. Neuro: Awake and alert, GCS 15, oriented to person, place, time, and situation. Cranial nerves II-XII grossly intact. Motor strength 5/5 in all extremities. Sensory grossly intact. Cerebellar exam normal. Normal gait. Vital Signs: 08/07 19:47 BP 155 / 70; Pulse 81; Resp 17; Temp 97.6; Pulse Ox 99% ; Weight 73.94 kg; Height 5 ft. rr5 8 in. (172.72 cm); Pain 0/10; 20:18 BP 138 / 52; Pulse 80; Resp 18; Pulse Ox 98% ; rr5 21:19 BP 122 / 64; Pulse 77; Resp 17; Pulse Ox 98% on R/A; ea 23:17 BP 140 / 55; Pulse 73; Resp 16; Pulse Ox 95% ; ea 23:37 BP 121 / 55; Pulse 77; Resp 17; Temp 97.8; Pulse Ox 96% ; rr5 19:47 Body Mass Index 24.78 (73.94 kg, 172.72 cm) rr5 Comfort Coma Score: 19:47 Eye Response: spontaneous(4). Verbal Response: oriented(5). Motor Response: obeys rr5 commands(6). Total: 15. MDM: 19:45 Patient medically screened. tw08/08 06:20 Differential Diagnosis: aortic aneurysm, cardiac arrhythmia. Data reviewed: vital tw4 signs, nurses notes. Counseling: I had a detailed discussion with the patient and/or guardian regarding: the historical points, exam findings, and any diagnostic results supporting the discharge/admit diagnosis. Physician consultation: Jose Odell regarding admission, to the telemetry unit. patient's condition, and will see patient in ED. 06:21 Data reviewed: lab test result(s), cardiac enzymes, CBC, electrolytes, hepatic panel, tw4 EKG, radiologic studies, CT scan. Data interpreted: Pulse oximetry: Interpretation: normal. Test interpretation: by ED physician or midlevel provider: ECG, plain radiologic studies. 08/07 19:46 Order name: Basic Metabolic Panel; Complete Time: 21:37 4 08/07 21:39 Interpretation: Normal except: GFR 46; BUN 19. 08/07 19:46 Order name: CBC with Diff; Complete Time: 21:44 4 08/07 21:45 Interpretation: Normal except: HGB 11.9; HCT 35.9; BILLIE% 73.9. 08/07 19:46 Order name: Ckmb; Complete Time: 21:37 08/07 21:39 Interpretation: Within normal limits: CKMB < 1.0. 08/07 19:46 Order name: CPK; Complete Time: 21:37 tw4 08/07 21:39 Interpretation: Within normal limits: CPK 70. 08/07 19:46 Order name: Hepatic Function; Complete Time: 21:37 tw4 08/07 21:39 Interpretation: Normal except: ALB 3.2; GLOB 4.1; A/G 0.8. 08/07 19:46 Order name: Lipase; Complete Time: 21:37 tw4 08/07 21:39 Interpretation: Within normal limits: LIP 85. tw4 08/07 19:46 Order name: CT Head Brain wo Cont; Complete Time: 21:37 tw4 08/07 21:39 Interpretation: No acute disease. tw4 08/07 19:46 Order name: Magnesium; Complete Time: 21:37 tw4 08/07 21:43 Interpretation: Within normal limits: MG 1.9. tw4 08/07 19:46 Order name: Protime (+inr); Complete Time: 21:37 tw4 08/07 21:43 Interpretation: Within normal limits: PT 11.6. tw4 08/07 19:46 Order name: Ptt, Activated; Complete Time: 21:37 tw4 08/07 21:43 Interpretation: Within normal limits: PTT 29.5. tw4 08/07 19:46 Order name: Troponin (emerg Dept Use Only); Complete Time: 21:37 tw4 08/07 21:43 Interpretation: Within normal limits: TROPED < 0.02. tw4 08/07 19:46 Order name: EKG; Complete Time: 19:47 tw4 08/07 19:54 Order name: Glucose, Ancillary Testing; Complete Time: 21:37 EDMS 08/07 21:43 Interpretation: Within normal limits: GLUC,ANCIL 84. tw4 08/07 22:28 Order name: Urine Microscopic Only rr5 08 19:46 Order name: Cardiac monitoring; Complete Time: 19:46 tw4 08/07 19:46 Order name: EKG - Nurse/Tech; Complete Time: 19:46 tw4 08/07 19:46 Order name: IV Saline Lock; Complete Time: 19:55 tw4 08/07 19:46 Order name: Labs collected and sent; Complete Time: 19:55 tw4 08/07 19:46 Order name: NPO; Complete Time: 19:55 tw4 08/07 19:46 Order name: O2 Per Protocol; Complete Time: 19:55 tw4 08/07 19:46 Order name: O2 Sat Monitoring; Complete Time: 19:55 tw4 08/07 19:46 Order name: Urine Dipstick-Ancillary (obtain specimen); Complete Time: 22:27 tw4 EC:18 Rate is 78 beats/min. Rhythm is regular. QRS [place] is Normal. QRS interval is normal. QT tw4 interval is normal. No Q waves. T waves are Normal. No ST changes noted. Clinical impression: Normal ECG. Interpreted by me. Reviewed by me. Administered Medications: No medications were administered Point of Care Testing: Blood Glucose: 08/07 19:47 Blood Glucose: 83 mg/dL; rr5 Ranges: Critical Glucose Levels:Adult <50 mg/dl or >400 mg/dl <40 mg/dl or >180 mg/dl Disposition: 08/07/19 22:00 Hospitalization ordered by Jose Odell for Observation. Preliminary diagnosis is Syncope and collapse. - Bed requested for Telemetry/MedSurg (observation). - Status is Observation. rr5 - Condition is Stable. - Problem is new. - Symptoms have improved. Signatures: Dispatcher [employer] EDGeovanna Brannon, RN RN cg Brain Bautista MD MD tw4 Lobo Shannon RN RN rr5 Corrections: (The following items were deleted from the chart) 23:11 22:00 Hospitalization Ordered by Jose Odell for Observation. Preliminary diagnosis cg is Syncope and collapse. Bed requested for Telemetry/MedSurg (observation). Status is Observation. Condition is Stable. Problem is new. Symptoms have improved. tw4 23:48 23:11 08/07/2019 22:00 Hospitalization Ordered by Jose Odell for Observation. rr5 Preliminary diagnosis is Syncope and collapse. Bed requested for Telemetry/MedSurg (observation). Status is Observation. Condition is Stable. Problem is new. Symptoms have improved. cg
--- NOTE | 2019-08-07 22:52 | P.HP ---
Certification for Inpatient Patient admitted to: Observation With expected LOS: <2 Midnights Practitioner: I am a practitioner with admitting privileges, knowledge of patient current condition, hospital course, and medical plan of care. Services: Services provided to patient in accordance with Admission requirements found in Title 42 Section 412.3 of the Code of Federal Regulations Patient History Date of Service: 08/07/19 Reason for admission: Syncope History of Present Illness: 83-year-old woman with a history of hypertension and hypothyroidism was brought to the emergency department due to a syncopal episode. Patient is reported to have passed out in a grocery store. She denies any preceding palpitation or shortness of breath or chest pain. She also denied any lightheadedness prior to passing out. The patient reports multiple syncopal episodes over the last few years. She was told this is likely due to low blood pressure and has been told by her PCP, her systolic blood pressure need to be in the 140-150 range and therefore readjusted her antihypertensives. Her EKG in the ED shows normal sinus rhythm. Initial troponin is negative. Head CT shows no acute abnormality. She denied any symptoms during my examination in the ED. Patient is placed under observation for further workup for the syncopal episode. Allergies aspirin Allergy (Verified 08/08/19 00:16) bleeding Penicillins Allergy (Verified 08/08/19 00:16) Hives/Rash Sulfa (Sulfonamide Antibiotics) Allergy (Verified 08/08/19 00:16) plts Home Medications: Bimatoprost [Lumigan Opthalmic Drops*] 1 drop OPTH TID 01/25/14 Levothyroxine Sodium [Synthroid] 175 mcg PO DAILY 01/25/14 Losartan Potassium [Cozaar] 25 mg PO BID 01/25/14 Tramadol HCl [Ultram] 50 mg PO Q4HP PRN 01/25/14 Brimonidine Tartrate [Alphagan P] 1 drop EACH EYE TID 08/08/19 Latanoprost Ophth [Xalatan 0.005%*] 1 drop EACH EYE BEDTIME PRN 08/08/19 - Past Medical/Surgical History Diabetic: No -: anemia -: migraines -: glaucoma -: hypertenstion -: hypothyroidism -: jer carotid blockage -: appy -: [place] -: hysterectomy - Family History Family History: Reviewed- Non-Contributory - Family History Father -: Cancer Notes: Lung Cancer Brother -: Cancer Notes: stomach cancer Sister -: Heart disease Notes: emphysema - Social History Alcohol use: No CD- Drugs: No Caffeine use: Yes Review of Systems Other: Except as documented, all other systems reviewed and negative. Physical Examination - Physical Exam General: Alert, In no apparent distress, Oriented x3 HEENT: Normocephalic, Mucous membr. moist/pink, Sclerae nonicteric Neck: Supple, 2+ carotid pulse no bruit, JVD not distended Respiratory: Clear to auscultation bilaterally, Normal air movement Cardiovascular: No edema, Regular rate/rhythm, Normal S1 S2 Capillary refill: <2 Seconds Gastrointestinal: Normal bowel sounds, Soft and benign, Non-distended, No tenderness Musculoskeletal: No swelling, No erythema Integumentary: No rashes Neurological: Normal speech, Normal strength at 5/5 x4 extr, Cranial nerves 3- 12 intact - Studies Laboratory Data (last 24 hrs) 08/07/19 20:15: PT 11.6, INR 0.98, APTT 29.5 08/07/19 20:15: WBC 6.0, Hgb 11.9 L, Hct 35.9 L, Plt Count 192 08/07/19 20:15: Sodium 138, Potassium 4.2, BUN 19 H, Creatinine 1.12, Glucose 102, Magnesium 1.9, Total Bilirubin 0.5, AST 21, ALT 18, Alkaline Phosphatase 80 , Lipase 85 Assessment and Plan - Problems (Diagnosis) (1) Syncope Status: Acute (2) Hypertension Status: Chronic (3) Hypothyroidism Status: Chronic - Plan Place under observation. Trend troponin Telemetry Obtain echocardiogram Check orthostatics vitals There is a report of carotid artery disease in her medical records. MRA of the neck done in 2013 showed no carotid artery disease. Patient will need carotid Doppler as an outpatient. She may also benefit from an event monitor to rule out arrhythmia as the cause of her multiple syncopal episodes. Hold antihypertensives. - Advance Directives Does patient have a Living Will: No Does patient have a Durable POA for Healthcare: No
[2019-08-07 23:59] VITALS: O2SAT 96
[2019-08-08] MEDS ORDERED: ACETAMINOPHEN 500 MG TAB PO PRN (00:12)
[2019-08-08] MEDS ORDERED: ONDANSETRON 4 MG/2 ML VIAL IV PRN (00:12)
[2019-08-08] MEDS ORDERED: NA CHLORIDE 0.9% 1,000 ML IV SCH (00:12)
[2019-08-08 00:15] LABS: Urine Bacteria <20 /HPF (<20); Urine Culture Reflex Order NOT NEEDED; Urine RBC <5 /HPF (NONE SEEN)
[2019-08-08 01:14] VITALS: BMI 24.7
[2019-08-08 06:23] LABS: Phosphorus 3.4 mg/dL (2.5-4.9); Potassium 4.1 mmol/L (3.5-5.1)
[2019-08-08] MEDS ORDERED: ENOXAPARIN 40 MG/0.4 ML SQ SCH (09:00)
[2019-08-08] MEDS ORDERED: INFLUENZA VACCINE (for 3y+) 0.5 ML DOSE IMVAC ONE (09:00)
--- NOTE | 2019-08-08 09:46 | P.PN ---
Subjective Date of Service: 08/08/19 Chief Complaint: Syncope Subjective: No new changes, No C/O voiced, Improving, Doing well (-admitted for recurrent syncope with negative preior workup but she reports she was told her carotid are twisted -feels better now , no dizizness or headache) Review of Systems 10-point ROS is otherwise unremarkable Physical Examination - Vital Signs Temperature: 97.4 F Blood Pressure: 170/77 Pulse: 79 Respirations: 16 Pulse Ox (%): 95 - Physical Exam General: Alert, Oriented x3 HEENT: Atraumatic, Normocephalic Neck: Supple, 2+ carotid pulse no bruit Respiratory: Clear to auscultation bilaterally, Normal air movement Cardiovascular: No edema, Normal pulses, Regular rate/rhythm, Normal S1 S2 Gastrointestinal: Normal bowel sounds, Soft and benign, Non-distended Neurological: Normal speech, Normal strength at 5/5 x4 extr, Normal tone, Sensation intact (no nystagmus ) - Studies Laboratory Data (last 24 hrs) 08/07/19 20:15: PT 11.6, INR 0.98, APTT 29.5 08/07/19 20:15: WBC 6.0, Hgb 11.9 L, Hct 35.9 L, Plt Count 192 08/07/19 20:15: Sodium 138, Potassium 4.2, BUN 19 H, Creatinine 1.12, Glucose 102, Magnesium 1.9, Total Bilirubin 0.5, AST 21, ALT 18, Alkaline Phosphatase 80 , Lipase 85 Laboratory Last Values WBC 6.0 K/uL (4.3-10.9) 08/07/19 20:15 RBC 4.02 M/uL (3.86-4.86) 08/07/19 20:15 Hgb 11.9 g/dL (12.0-15.0) L 08/07/19 20:15 Hct 35.9 % (36.0-45.0) L 08/07/19 20:15 MCV 89.3 fL (80-100) 08/07/19 20:15 MCH 29.6 pg (27.0-35.0) 08/07/19 20:15 MCHC 33.2 g/dL (32.0-36.0) 08/07/19 20:15 RDW 13.5 % (12.1-15.2) 08/07/19 20:15 Plt Count 192 K/uL (152-406) 08/07/19 20:15 MPV 9.3 fL (7.6-11.3) 08/07/19 20:15 Neutrophils % 73.9 % (41.7-73.7) H 08/07/19 20:15 Lymphocytes % 16.5 % (15.3-44.8) 08/07/19 20:15 Monocytes % 7.9 % (3.3-12.3) 08/07/19 20:15 Eosinophils % 1.3 % (0-4.4) 08/07/19 20:15 Basophils % 0.4 % (0-1.3) 08/07/19 20:15 Absolute Neutrophils 4.4 K/uL (1.8-8.0) 08/07/19 20:15 Absolute Lymphocytes 1.0 K/uL (0.7-4.9) 08/07/19 20:15 Absolute Monocytes 0.5 K/uL (0.1-1.3) 08/07/19 20:15 Absolute Eosinophils 0.1 K/uL (0-0.5) 08/07/19 20:15 Absolute Basophils 0.0 K/uL (0-0.5) 08/07/19 20:15 PT 11.6 SECONDS (9.5-12.5) 08/07/19 20:15 INR 0.98 08/07/19 20:15 APTT 29.5 SECONDS (24.3-36.9) 08/07/19 20:15 Sodium 142 mmol/L (136-145) 08/08/19 05:17 Potassium 4.1 mmol/L (3.5-5.1) 08/08/19 05:17 Chloride 110 mmol/L (98-107) H 08/08/19 05:17 Carbon Dioxide 27 mmol/L (21-32) 08/08/19 05:17 BUN 18 mg/dL (7-18) 08/08/19 05:17 Creatinine 0.96 mg/dL (0.55-1.3) 08/08/19 05:17 Estimated GFR 56 mL/min (=/>90) L 08/08/19 05:17 Glucose 81 mg/dL (74-106) 08/08/19 05:17 POC Glucose 84 mg/dl (65-120) 08/07/19 19:42 Calcium 8.9 mg/dL (8.5-10.1) 08/08/19 05:17 Phosphorus 3.4 mg/dL (2.5-4.9) 08/08/19 05:17 Magnesium 2.0 mg/dL (1.8-2.4) 08/08/19 05:17 Total Bilirubin 0.5 mg/dL (0.2-1.0) 08/07/19 20:15 Direct Bilirubin 0.1 mg/dL (0-0.2) 08/07/19 20:15 AST 21 U/L (15-37) 08/07/19 20:15 ALT 18 U/L (12-78) 08/07/19 20:15 Alkaline Phosphatase 80 U/L (45-117) 08/07/19 20:15 Creatine Kinase 70 U/L (26-192) 08/07/19 20:15 CK-MB (CK-2) < 1.0 ng/mL (0.3-3.6) 08/07/19 20:15 Rapid Troponin I < 0.02 ng/mL (0.0-0.045) 08/07/19 20:15 Troponin I < 0.02 ng/mL (0.0-0.045) 08/08/19 00:40 Serum Total Protein 7.3 g/dL (6.4-8.2) 08/07/19 20:15 Albumin 3.2 g/dL (3.4-5.0) L 08/07/19 20:15 Globulin 4.1 g/dL (2.3-3.5) H 08/07/19 20:15 Albumin/Globulin Ratio 0.8 (1.1-1.8) L 08/07/19 20:15 Lipase 85 U/L (73-393) 08/07/19 20:15 Urine RBC <5 /HPF (NONE SEEN) 08/07/19 22:20 Urine WBC None seen /HPF (<5) 08/07/19 22:20 Ur Squamous Epith Cells APPLIANCE COUNSELOR 08/07/19 22:20 Urine Bacteria <20 /HPF (<20) 08/07/19 22:20 Hyaline Casts 0-5 /LPF (NONE SEEN) 08/07/19 22:20 Urine Culture Reflexed Not needed 08/07/19 22:20 Medications List Reviewed: Yes Assessment & Plan - Problems (Diagnosis) (1) Hypertension Current Visit: Yes Status: Chronic (2) Hypothyroidism Current Visit: Yes Status: Chronic (3) Syncope Current Visit: No Status: Acute Discharge Plan: Home Physician Review: Patient Assessed, Agree with Above Assessment and Plan Physician Review Additional Text: # Recurrent syncope-may be due to cardiac arrhythmia -will follow echocardiogram to rule out valvular heart disease -will also obtain carotid ultrasound while inpatient given history of twisted carotid - will consult Cardiology to be on board -c/w telemetry -will dc IVF now -start PT for ambulation #Hypertension-elevated now, start low-dose amlodipine, avoid beta wai or diuretics for now #Hypothyroid disease-follow tsh, resume Synthroid #DVT prophylaxis -subcutaneous heparin
[2019-08-08 12:11] VITALS: BP 136/63; TEMP 96.8
--- NOTE | 2019-08-08 12:51 | CON ---
This is an 83-year-old woman. Mrs. Villalba had an episode of loss of consciousness. She was shopping. She had been at 2 different grocery stores, standing, walking for about 3 hours and she stood in her line, hardly moving her legs at all for about 5 minutes, and shortly after that she felt dizzy, wanted to sit down, but could not find a place to sit and fell to the floor. She woke up immediately and then she was examined in the hospital. CT of the head is normal. She has been on telemetry. There is no arrhythmia and troponins are normal. Mrs. Villalba has orthostatic symptoms every day, every time she stands up she feels lightheaded and dizzy. She has fainted maybe 5 times that brought her to the hospital numerous other times without hospitalization. She has had numerous workups. She is told she has tortuous carotid arteries but no stenosis. She has never had any kind of vascular surgery including stents. No myocardial infarction or stroke. She does not have diabetes. She takes a blood pressure medicine. She takes losartan 25 mg b.i.d., levothyroxine, tramadol, latanoprost eye drops, and brimonidine eyedrops. She has glaucoma and hypertension and hypothyroidism. Allergies: SHE IS ALLERGIC TO ASPIRIN, PENICILLIN, AND SULFA ANTIBIOTICS. Physical Examination: General: She appears to be her stated age of 83. She is 5 feet 8 inches, 163 pounds. HEENT: Within normal limits. No carotid bruit. Lungs: Clear. Cardiac: Exam normal. Abdomen: Soft. Extremities: Normal. Her EKG does not show any significant abnormality. I think the patient should have an echo, carotid study, orthostatic vital signs and simultaneous right and left arm via blood pressures to make sure she does not have subclavian steal syndrome or severe bilateral carotid stenosis, or an undetected cardiac abnormality such as aortic stenosis. SH/MODL Voice ID: [id number] Report ID: [id number] GRISELDA
--- NOTE | 2019-08-08 15:54 | P.DS ---
Admission Date: 08/07/19 Discharge Date: 08/08/19 Disposition: AMA-LEFT AGAINST MEDICAL ADVIC Reason for Admission: Syncope - Problems (1) Hypertension Current Visit: Yes Status: Chronic (2) Hypothyroidism Current Visit: Yes Status: Chronic (3) Syncope Current Visit: No Status: Acute Hospital Course: Patient with history of recurrent syncope admitted for syncopal episode. She provided history of carotid problem in the past. She was scheduled for carotid ultrasound, echocardiogram. A cardiology consult was obtained. There was no EKG changes on telemetry monitoring. Patient while still investigated decided to leave AMA after discussion with family. Vital Signs/Physical Exam: Temp Pulse Resp BP Pulse Ox 96.8 F 68 16 136/63 95 08/08/19 12:00 08/08/19 12:00 08/08/19 12:00 08/08/19 12:00 08/08/19 12:00 Laboratory Data at Discharge: WBC 6.0 K/uL (4.3-10.9) 08/07/19 20:15 Hgb 11.9 g/dL (12.0-15.0) L 08/07/19 20:15 Hct 35.9 % (36.0-45.0) L 08/07/19 20:15 Plt Count 192 K/uL (152-406) 08/07/19 20:15 PT 11.6 SECONDS (9.5-12.5) 08/07/19 20:15 INR 0.98 08/07/19 20:15 APTT 29.5 SECONDS (24.3-36.9) 08/07/19 20:15 Sodium 142 mmol/L (136-145) 08/08/19 05:17 Potassium 4.1 mmol/L (3.5-5.1) 08/08/19 05:17 BUN 18 mg/dL (7-18) 08/08/19 05:17 Creatinine 0.96 mg/dL (0.55-1.3) 08/08/19 05:17 Glucose 81 mg/dL (74-106) 08/08/19 05:17 Phosphorus 3.4 mg/dL (2.5-4.9) 08/08/19 05:17 Magnesium 2.0 mg/dL (1.8-2.4) 08/08/19 05:17 Total Bilirubin 0.5 mg/dL (0.2-1.0) 08/07/19 20:15 AST 21 U/L (15-37) 08/07/19 20:15 ALT 18 U/L (12-78) 08/07/19 20:15 Alkaline Phosphatase 80 U/L (45-117) 08/07/19 20:15 Troponin I < 0.02 ng/mL (0.0-0.045) 08/08/19 00:40 Lipase 85 U/L (73-393) 08/07/19 20:15 Home Medications: Bimatoprost [Lumigan Opthalmic Drops*] 1 drop OPTH TID 01/25/14 Levothyroxine Sodium [Synthroid] 175 mcg PO DAILY 01/25/14 Losartan Potassium [Cozaar] 25 mg PO BID 01/25/14 Tramadol HCl [Ultram] 50 mg PO Q4HP PRN 01/25/14 Brimonidine Tartrate [Alphagan P] 1 drop EACH EYE TID 08/08/19 Latanoprost Ophth [Xalatan 0.005%*] 1 drop EACH EYE BEDTIME PRN 08/08/19
[2019-08-09] MEDS ORDERED: AMLODIPINE 2.5 MG TAB PO SCH (09:00)
--- NOTE | 2019-08-09 09:21 | EKG ---
Test Date: 2019-08-07 Test Time: 19:50:06 Full Stack Software Engineer: CUONG MEASUREMENT RESULTS: Intervals: Rate: 78 VA: 150 QRSD: 92 QT: 390 QTc: 444 [place]: P: -12 VA: 150 QRS: 13 T: 16 INTERPRETIVE STATEMENTS: Normal sinus rhythm Normal ECG Compared to ECG 12/04/2017 10:38:43 No significant changes Electronically Signed On 08-09-19 09:21:12 HIDE COOKING OPERATOR by Maicol Metz
== END 2019-08-08 14:15 | disposition left against medical advice (07) ==
LOC: ER 19:33 → ERHOLD 22:58 → 4TH 23:36
PROVIDERS: ADMIT Internal Medicine; ATTEND Internal Medicine
DX: R55 Syncope and collapse (principal); I10 Essential (primary) hypertension; E03.9 Hypothyroidism, unspecified; Z53.29 Procedure and treatment not carried out because of patient's decision for other reasons; Z88.6 Allergy status to analgesic agent; Z88.0 Allergy status to penicillin; Z88.2 Allergy status to sulfonamides
CPT/HCPCS: 93005; 85025; 80048 ×2; 36415; 83735 ×2; 82550; 84100; 85610; 82947; 80076; 85730; 81015; 84484 ×2; 82553; 83690; 70450; 97116; 97161; 99285; J7030; G0378 ×2; J1650